=== PATIENT | female | born 2000 | race Caucasian/White ===

== ENCOUNTER 2018-09-30 16:29 | Emergency (ER) | payer OTHER ==
[2018-09-30 16:35] VITALS: BP 144/76
[2018-09-30] MEDS ORDERED: diphenhydrAMINE INJ 50 MG/ML VIAL IM STA (16:46)
[2018-09-30] MEDS ORDERED: DEXAMETHASONE 10 MG/ML VIAL PO STA (16:47)
--- NOTE | 2018-09-30 16:54 | ED Physician Documentation ---
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 - Additional information Additional information: The patient is a 18-year-old female with history of asthma who presents with rash that started yesterday, initially in her chest, and then progressed to involve neck, shoulders, back, and upper and lower extremities. She noticed mild associated shortness of breath, so used her Flovent inhaler. She denies sore throat or difficulty swallowing. She denies headache, abdominal pain, nausea or vomiting. She has no history of similar symptoms in the past. This morning she took Benadryl, about 7 hours prior to arrival, with transient improvement of her symptoms. She is not taking any new medication. She is unaware of eating shellfish, nuts, but did eat Ramen noodles from [employer] that she has not eaten in the past. No other family members have similar symptoms. Review of Systems Constitutional: denies: Fever Eyes: denies: Irritation Ears: denies: Tinnitus/ringing Nose: denies: Congestion Throat: denies: Sore throat Cardiac: denies: Chest pain / pressure Respiratory: reports: Dyspnea (mild). denies: Cough GI: denies: Abdominal Pain, Nausea, Vomiting : denies: Dysuria Skin: reports: Rash Musculoskeletal: denies: Back pain, Extremity swelling Neurologic: denies: Focal weakness, Numbness, Headache PD PAST MEDICAL HISTORY - Past Medical History Past Medical History: Yes Respiratory: Asthma Endocrine/Autoimmune: None - Past Surgical History Past Surgical History: No - Present Medications Home Medications: Ambulatory Orders Medication Instructions Recorded Confirmed Fluticasone 44 Mcg [Flovent] 1 puffs INH BID 09/30/18 09/30/18 Loratadine [Claritin] 10 mg PO DAILY 09/30/18 09/30/18 predniSONE [Prednisone] 40 mg PO DAILY #6 tablet 09/30/18 - Allergies Allergies/Adverse Reactions: Allergies Allergy/AdvReac Type Severity Reaction Status Date / Time animal dander Allergy Unknown Verified 09/30/18 16:35 - Social History Does the pt smoke?: No Smoking Status: Never smoker Does the pt drink ETOH?: No Does the pt have substance abuse?: No - Immunizations Immunizations are current?: Yes - POLST Patient has POLST: No PD ED PE NORMAL - Vitals Vital signs reviewed: Yes (Systolic hypertension.) - General General: Alert and oriented X 3, Other (Morbidly obese.) - HEENT HEENT: Atraumatic, Pharynx benign - Neck Neck: No adenopathy, No JVD - Cardiac Cardiac: RRR - Respiratory Respiratory: No respiratory distress, Clear bilaterally - Abdomen Abdomen: Soft, Non tender - Back Back: No CVA TTP - Derm Derm: Other (Diffuse, slightly raised rash, involving trunk, neck, upper extremities, and inner thighs. There is palmar erythema.) - Extremities Extremities: No edema, No calf tenderness / cord - Neuro Neuro: Alert and oriented X 3, No motor deficit, No sensory deficit, Normal speech Results - Vitals Vitals: Oxygen O2 Source Room air PD MEDICAL DECISION MAKING - ED course Complexity details: reviewed old records, re-evaluated patient, considered differential, d/w patient, d/w family ED course: The patient's presentation is most consistent with an allergic rash. The offending allergen is undetermined at this time. She has no associated respiratory symptoms. Treatment in the emergency department included administration of Benadryl 50 mg IM and dexamethasone 10 mg orally. Her rash significantly improved with the above treatment. She is being discharged with prescription for prednisone, and will continue using Benadryl at home. I discussed with her and her mother the expected course of illness, outpatient treatment and follow-up, as well as potentially worrisome signs or symptoms that should prompt reevaluation in the emergency department. Departure - Departure Disposition: 01 Home, Self Care Clinical Impression: Rash due to allergy Condition: Stable Instructions: ED Dermatitis Non Specific Rash Follow-Up: Audrey Morgan ARNP [Primary Care Provider] - Prescriptions: predniSONE [Prednisone] 40 mg PO DAILY #6 tablet Comments: Take prednisone daily for the next 3 days as prescribed. You can use Benadryl, up to 50 mg 4 times daily if needed for itching or rash. Follow-up with your primary physician within 1-2 weeks. Call to schedule appo intment. Return to the emergency department if you develop increasing difficulty breathing, difficulty swallowing, or otherwise worsening symptoms. Discharge Date/Time: 09/30/18 18:02
== END 2018-09-30 18:02 | disposition home or self-care (01) ==
LOC: ED 16:29
DX: T78.40XA Allergy, unspecified, initial encounter (principal); X58.XXXA Exposure to other specified factors, initial encounter; R21 Rash and other nonspecific skin eruption; R06.00 Dyspnea, unspecified
CPT/HCPCS: 96372; 99283

== ENCOUNTER 2020-06-06 07:29 | Emergency (ER) | payer MEDICAID, OTHER ==
[2020-06-06] MEDS ORDERED: IPRATROPIUM/ALBUTEROL 3 ML NEB INH STA (07:54)
[2020-06-06] MEDS ORDERED: DEXAMETHASONE 10 MG/ML VIAL PO STA (07:55)
[2020-06-06] MEDS ORDERED: CHERRY SYRUP 10 ML UDC PO ONE (07:55)
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
--- NOTE | 2020-06-06 08:58 | XRAY Report ---
PROCEDURE: Chest 1 View X-Ray INDICATIONS: sob TECHNIQUE: One view of the chest was acquired. COMPARISON: Chest x-ray 06/22/2016 FINDINGS: Surgical changes and devices: None. Lungs and pleura: No pleural effusions or pneumothorax. Lungs are clear. Mediastinum: Mediastinal contours appear normal. Heart size is normal. Bones and chest wall: No suspicious bony lesions. Overlying soft tissues appear unremarkable. IMPRESSION: No acute pulmonary process. Reviewed by: Joelle Kaba MD on 06/06/2020 8:57 AM PDT Approved by: Joelle Kaba MD on 06/06/2020 8:57 AM PDT Station ID: [id number]
[2020-06-06 09:10] VITALS: BP 153/80
== END 2020-06-06 09:19 | disposition home or self-care (01) ==
LOC: ED 07:29
DX: J45.41 Moderate persistent asthma with (acute) exacerbation (principal)
CPT/HCPCS: 71045; 94640; 99283; 99284; A9270

== ENCOUNTER 2020-12-16 07:00 | Outpatient (CLI) | payer MEDICAID ==
[2020-12-16 12:04] LABS: BASOPHILS # (AUTO) 0.1 10^3/uL (0.0-0.1); BASOPHILS % (AUTO) 0.6 %; EOSINOPHILS # (AUTO) 0.2 10^3/uL (0.0-0.7); EOSINOPHILS % (AUTO) 2.2 %; HCT - HEMATOCRIT 42.3 % (37.0-47.0); HGB - HEMOGLOBIN 13.2 g/dL (12.0-16.0); LYMPHOCYTES # (AUTO) 2.6 10^3/uL (1.5-3.5); MEAN CORPUSCULAR HEMOGLOBIN 26.8 pg (27.0-31.0); MEAN CORPUSCULAR HGB CONC 31.2 g/dL (32.0-36.0); MEAN CORPUSCULAR VOLUME 85.8 fL (81.0-99.0); MONOCYTES # (AUTO) 0.7 10^3/uL (0.0-1.0); MONOCYTES % (AUTO) 8.1 %; NEUTROPHILS # (AUTO) 4.7 10^3/uL (1.5-6.6); NEUTROPHILS % (AUTO) 56.9 %; PLT - PLATELET COUNT 407 10^3/uL (130-450); RED BLOOD COUNT 4.93 10^6/uL (4.20-5.40); RED CELL DISTRIBUTION WIDTH 13.7 % (12.0-15.0); WHITE BLOOD COUNT 8.2 x10^3/uL (4.8-10.8)
[2020-12-16 13:02] LABS: THYROID STIMULATING HORMONE 1.62 uIU/mL (0.34-5.60)
[2020-12-16 13:08] LABS: ALBUMIN 4.2 g/dL (3.2-5.5); ALKALINE PHOSPHATASE 57 IU/L (42-121); ALT ALANINE AMINOTRANSFERASE 17 IU/L (10-60); AST ASPARTATE AMINOTRANSFERASE 17 IU/L (10-42); BILIRUBIN,TOTAL 0.6 mg/dL (0.2-1.0); BUN - BLOOD UREA NITROGEN 15 mg/dL (6-20); CALCIUM 9.4 mg/dL (8.5-10.3); CARBON DIOXIDE - CO2 25 mmol/L (21-32); CHLORIDE 105 mmol/L (101-111); CHOL/HDL RATIO 4.4 (<4.4); CHOLESTEROL 174 mg/dL; CREATININE 0.9 mg/dL (0.4-1.0); GFR - MDRD 78 (>89); GLUCOSE 104 mg/dL (70-100); HDL CHOLESTEROL 40 mg/dL; LDL CHOLESTEROL,CALCULATED 120 mg/dL; POTASSIUM 5.1 mmol/L (3.5-5.0); SODIUM 139 mmol/L (135-145); TOTAL PROTEIN 8.3 g/dL (6.7-8.2); TRIGLYCERIDES 68 mg/dL; VLDL CHOLESTEROL 14 mg/dL
[2020-12-16 13:11] LABS: ESTIMATED AVERAGE GLUCOSE 100 mg/dL (70-100); HEMOGLOBIN A1c% 5.1 % (4.27-6.07)
== END 2020-12-16 23:59 | disposition home or self-care (01) ==
LOC: LAB.WCP 07:00
PROVIDERS: ATTEND Nurse Practitioner Family
DX: E28.2 Polycystic ovarian syndrome (principal); E66.9 Obesity, unspecified
CPT/HCPCS: 36415; 80053; 80061; 83036; 83721; 84443; 85025